=== PATIENT | male | born 1990 | race Two or more races ===

== ENCOUNTER 2025-08-25 23:48 | Emergency (ER) | payer MEDICAID, SELFPAY ==
[2025-08-25 23:51] VITALS: BMI 49.9
[2025-08-26 00:34] VITALS: BP 150/93; PULSE 94; RESP 18; TEMP 36.8; O2SAT 98
--- NOTE | 2025-08-26 01:04 | PC.NURSE ---
Poison control contacted regarding the intake of colchicine and squirt soda, no recommendation at this time, per poison control no real grapefruit in squirt soda so no concern for interaction as per poison control.
--- NOTE | 2025-08-26 01:09 | PD.EDNV ---
Nausea/Vomit./Diarrhea-RME/HPI General Chief complaint: General Adult/Misc Complain Stated complaint: NAUSEATED Time Seen by Provider: 08/26/25 00:42 Arrival date/time: 08/25/25 23:48 34M with no significant PMH presents to ED with 2 days of nausea. Patient is concerned about potential colchicine OD because he's been taking it while drinking Squirt soda and read because it has grapefruit juice, it can cause a drug interaction. Limitations: no limitations Related Data Previous Rx's ?Medication ?Instructions ?Recorded hydrocodone 7.5 mg-acetaminophen 1 tab PO Q6H PRN pain #14 tabs 10/03/22 325 mg tablet ondansetron 4 mg disintegrating 4 mg PO Q8H PRN nausea and 08/26/25 tablet vomiting #14 tabs Allergies Allergy/AdvReac Type Severity Reaction Status Date / Time No Known Allergies Allergy Verified 08/25/25 23:50 Review of Systems Review of Systems Systems Reviewed: All systems reviewed, normal except as documented Gastrointestinal Gastrointestinal: Reports as per HPI and Reports nausea Past Medical History Past Medical History CARDIAC: Positive Hypertension; Negative Congestive Heart Failure RESPIRATORY: Negative Chronic Obstructive Pulmonary Disease (COPD) GENITOURINARY: Negative Renal Disease ENDOCRINE: Negative Diabetes Mellitus Type 1 or Diabetes Mellitus Type 2 Social History SMOKING STATUS: Never smoker ED Exam General Limitations: Present no limitations General appearance: Present alert and in no apparent distress Head Head exam: Present atraumatic Neck Neck exam: Present normal inspection, full ROM and trachea midline Chest Chest inspection: Present normal inspection and symmetric chest wall rise Neurological Exam Neurological exam: Present alert and oriented X3 Psychiatric Psychiatric exam: Present normal affect and normal mood Skin Skin exam: Present warm, dry, intact and normal color Course Quality Measures none Orders Category Date Time Status Ondansetron Odt [Zofran Odt] Med 08/26/25 01:07 Once 4 mg PO X1 ONE Vital Signs Vital signs: Vital Signs Temperature 98.3 F 08/26/25 00:34 Pulse Rate 94 08/26/25 00:34 Respiratory Rate 18 08/26/25 00:34 Blood Pressure 150/93 H 08/26/25 00:34 Pulse Oximetry (%) 98 08/26/25 00:34 Oxygen Delivery Method Room Air 08/26/25 00:34 O2 at 98% on RA and WNLs Nausea/Vomiting/Diarrhea MDM Narrative MDM Narrative:: 34M with no significant PMH presents to ED with 2 days of nausea. Patient is concerned about potential colchicine OD because he's been taking it while drinking Squirt soda and read because it has grapefruit juice, it can cause a drug interaction. Physical exam reveals normal WOB. Patient is afebrile, calm, and alert. Poison control was contacted and states no intervention is necessary as it's only artificial flavoring in Squirt and no real grapefruit juice. Meds and college and career counselor given. Patient data External records reviewed:: [facility] previous records Clinical information provided by:: patient Social determinants that could affect healthcare access:: none Patient has the following chronic illnesses:: none How is presenting disease/condition affected by chronic disease/condition?: no chronic disease Evaluation data The following diagnostics were reviewed and interpreted by me:: other (specify) (none) Lab and/or radiology exams considered but not ordered:: not ordered Interpretation Summary: n/a Medications / Prescriptions Medications / Prescriptions considered but not ordered:: ordered Medication administrations:: Medication Administration History Ondansetron HCl (Ondansetron Odt 4 Mg Tabrap) 4 mg PO X1 ONE; Protocol Stop: 08/26/25 01:08 above Consultations Consultation(s) initiated? (list below): No Diagnosis Nausea Differential Diagnosis: traveler's diarrhea, food poisoning, gastroenteritis, clostridium difficile infection, drug-induced nausea and vomiting, dehydration and other (nausea) Most likely diagnosis given after review of the tests above:: nausea Admission Indicated Admission indicated?: not indicated Admission Request Was there a request for admission?: No Disposition Plan Disposition Plan: Discharge Discharge Attestation Discharge Attestation: The patient and all family members were given an opportunity to ask questions and understood the discharge instructions. Discharge instructions specifically effects, indications for sooner follow up or return to the emergency department, and the expected course of current diagnosis. Patient condition: Stable Discharge Plan Plan Patient Disposition: HOME (Self Care) Discharge Disposition comment: Stable Prescriptions/Referrals Prescriptions/Med Rec: New ondansetron 4 mg tablet,disintegrating 4 mg PO Q8H PRN (Reason: nausea and vomiting) Qty: 14 0RF No Action hydrocodone-acetaminophen 7.5-325 mg tablet 1 tab PO Q6H MDD 4 PRN (Reason: pain) Qty: 14 0RF Problem List Clinical Impression: Nausea Patient/Caregiver Discharge Instructions Education Materials: ED Vomiting (Adult) Additional Instructions: Please follow-up with PCP within 24-48 hours and return immediately if symptoms worsen. Keep hydrated. Advance diet as tolerated. Print Language: Ghanaian Stand Alone Forms: Patient Portal Info Letter PA/DIRECTOR MARKETING COMMUNICATION[employer] Supervising Physician PA/DIRECTOR MARKETING COMMUNICATION[employer] Supervising Physician: Dr. Lorenzo
[2025-08-26] MEDS: ONDANSETRON ODT 4 MG TABRAP PO (01:16)
== END 2025-08-26 01:30 | disposition home or self-care (01) ==
LOC: SERX 08-26 05:52
PROVIDERS: Emergency Provider Emergency Medicine; PCP Family Medicine
DX: R11.2 Nausea with vomiting, unspecified (principal)
CPT/HCPCS: 99281; Q0162